=== PATIENT | male | born 1985 ===

== ENCOUNTER 2017-08-08 15:11 | Emergency (ER) | payer SELFPAY ==
[~2017-08-08] VITALS: Ht 177.8 cm; Wt 78.0 kg
[2017-08-08 15:19] VITALS: BP 134/70; PULSE 86; RESP 16; TEMP 99.1; O2SAT 96
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
[2017-08-08] MEDS ORDERED: SODIUM CHLOR 0.9% 1000 ML INJ 1,000 ML IV ONE (15:45)
[2017-08-08 15:46] LABS: AUTOMATED NEUTROPHIL # 9.3 TH/MM3 (1.8-7.7); BASOPHIL # 0.1 TH/MM3 (0-0.2); BASOPHIL % 0.5 % (0.0-2.0); EOSINOPHIL # 0.1 TH/MM3 (0-0.4); EOSINOPHIL % 0.5 % (0.0-4.0); HEMATOCRIT 42.5 % (39.0-51.0); HEMO FLAGS DIFF FINAL; LYMPH % 10.7 % (9.0-44.0); LYMPHOCYTE # 1.2 TH/MM3 (1.0-4.8); MEAN CELL VOLUME 90.2 FL (80.0-100.0); MEAN CORPUSCULAR HEMOGLOBIN 30.3 PG (27.0-34.0); MEAN CORPUSCULAR HGB CONC 33.6 % (32.0-36.0); MONO % 4.8 % (0.0-8.0); NEUT % 83.5 % (16.0-70.0); PLATELET COUNT 307 TH/MM3 (150-450); RED BLOOD COUNT 4.71 MIL/MM3 (4.50-5.90); WHITE BLOOD COUNT 11.2 TH/MM3 (4.0-11.0)
[2017-08-08 15:58] LABS: CHLORIDE 100 MEQ/L (98-107); POTASSIUM 3.4 MEQ/L (3.5-5.1); SODIUM (NA) 135 MEQ/L (136-145)
[2017-08-08 16:00] LABS: ANION GAP 10 MEQ/L (5-15); BICARBONATE 24.7 MEQ/L (21.0-32.0); BLOOD UREA NITROGEN 18 MG/DL (7-18); MAGNESIUM 2.1 MG/DL (1.5-2.5)
[2017-08-08 16:04] LABS: GLOMERULAR FILTRATION RATE 77 ML/MIN (>89)
[2017-08-08 16:12] VITALS: BP 113/71
[2017-08-08] MEDS ORDERED: POTASSIUM CHLORIDE 20 MEQ CONTROLLED RELEASE TAB PO ONE (16:15)
--- NOTE | 2017-08-09 09:55 | EKG ---
Date Performed: 08/08/2017 Time Performed: 15:20:57 PTAGE: 31 years EKG: Sinus rhythm WITH SHORT OH INTERVAL BORDERLINE ECG NO PREVIOUS TRACING DOCTOR: Catrachito Hollins Interpretating Date/Time 08/09/2017 09:55:07
== END 2017-08-08 16:34 | disposition home or self-care (01) ==
LOC: PHED 15:11
DX: R55 Syncope and collapse (principal)
CPT/HCPCS: 80048; 83735; 84484; 85025; 93005; 96360; 99284; J7030